=== PATIENT | male | born 1990 | race Caucasian/White ===

== ENCOUNTER 2018-12-13 11:35 | Emergency (ER) | payer MEDICAID ==
[2018-12-13 11:42] VITALS: O2SAT 99
[2018-12-13 12:50] LABS: BASO # 0.1 K/uL (0.0-0.2); BASO % 0.7 % (0.0-2.0); EOS # 0.2 K/uL (0.0-0.7); EOS % 2.6 % (0.0-4.0); HEMOGLOBIN 13.5 g/dL (12.0-18.0); LYMPH # 2.3 K/uL (1.0-4.3); LYMPH % 31.8 % (20.0-40.0); MEAN CELL VOLUME 89.9 fL (80.0-94.0); MEAN CORPUSCULAR HEMOGLOBIN 30.9 pg (27.0-31.0); MEAN CORPUSCULAR HGB CONC 34.4 g/dL (33.0-37.0); MEAN PLATELET VOLUME 7.2 fL (7.2-11.7); MONO # 0.6 K/uL (0.0-0.8); MONO % 8.2 % (0.0-10.0); NEUT # 4.1 K/uL (1.8-7.0); NEUT % 56.7 % (50.0-75.0); RBC 4.38 Mil/uL (4.40-5.90); RED CELL DISTRIBUTION WIDTH 14.1 % (11.5-14.5); WHITE BLOOD COUNT 7.3 K/uL (4.8-10.8)
[2018-12-13 13:04] LABS: ALB/GLOB RATIO 1.9 (1.0-2.1); ALBUMIN 4.1 g/dL (3.5-5.0); ALT/SGPT 262 U/L (21-72); AST/SGOT 135 U/L (17-59); BLOOD UREA NITROGEN 22 mg/dL (9-20); CALCIUM 9.3 mg/dl (8.6-10.4); GFR NON-AFRICAN AMERICAN > 60; LIPASE 62 U/L (23-300)
[2018-12-13 13:17] LABS: B-TYPE NATRIURETIC PEPTIDE 270 pg/mL (0-450)
--- NOTE | 2018-12-13 13:58 | C.PDOC ---
History Of Present Illness 28 year old male with no medical problems presents to the emergency department requesting medical clearance. Patient states that he is trying to be admitted to the [facility] and they require medical clearance. Patient states he feels like he is "retaining water in his body", citing swollen feet and diffuse pain throughout his body. Patient denies history of breathing problems but reports some difficulty breathing recently due to "tension with sister and mother". Patient denies fever. Patient reports a family history of diabetes and hypertension. Time Seen by Provider: 12/13/18 12:22 Chief Complaint (Nursing): Lower Extremity Problem/Injury History Per: Patient History/Exam Limitations: no limitations Onset/Duration Of Symptoms: Days Current Symptoms Are (Timing): Still Present Past Medical History Reviewed: Historical Data, Nursing Documentation, Vital Signs Vital Signs: Last Vital Signs Temp 99.3 F 12/13/18 11:39 Pulse 77 12/13/18 11:39 Resp 20 12/13/18 11:39 BP 135/78 12/13/18 11:39 Pulse Ox 99 12/13/18 11:39 Primary Care Provider: FAMILY PROVIDER,NO - Medical History PMH: No Chronic Diseases Surgical History: No Surg Hx Family History: States: No Known Family Hx - Social History Hx Alcohol Use: Yes Hx Substance Use: Yes (Used to) - Immunization History Hx Tetanus Toxoid Vaccination: No Hx Influenza Vaccination: No Hx Pneumococcal Vaccination: No Review Of Systems Except As Marked, All Systems Reviewed And Found Negative. Constitutional: Negative for: Fever, Chills Respiratory: Negative for: Cough, Shortness of Breath Gastrointestinal: Positive for: Abdominal Pain. Negative for: Nausea, Vomiting, Diarrhea Musculoskeletal: Positive for: Arm Pain, Leg Pain, Foot Pain Neurological: Negative for: Weakness, Numbness Physical Exam - Physical Exam Appears: Non-toxic, No Acute Distress Skin: Normal Color, Warm, Dry Head: Atraumatic, Normacephalic Eye(s): bilateral: Normal Inspection, PERRL, EOMI Nose: Normal Oral Mucosa: Moist Neck: Normal, Supple Chest: Symmetrical, No Tenderness Cardiovascular: Rhythm Regular, No Murmur Respiratory: Normal Breath Sounds, No Rales, No Rhonchi, No Wheezing Gastrointestinal/Abdominal: Soft, No Tenderness, No Guarding, No Rebound Extremity: Normal ROM Neurological/Psych: Oriented x3, Normal Speech, Normal Cognition ED Course And Treatment - Laboratory Results Result Diagrams: 12/13/18 12:44 12/13/18 12:44 Lab Results: NT-Pro-B Natriuret Pep 270 pg/mL (0-450) 12/13/18 12:44 Total Bilirubin 0.3 mg/dL (0.2-1.3) 12/13/18 12:44 AST 135 U/L (17-59) H 12/13/18 12:44 ALT 262 U/L (21-72) H 12/13/18 12:44 Alkaline Phosphatase 64 U/L (38-126) 12/13/18 12:44 Total Protein 6.3 g/dL (6.3-8.3) 12/13/18 12:44 Albumin 4.1 g/dL (3.5-5.0) 12/13/18 12:44 Globulin 2.2 gm/dL (2.2-3.9) 12/13/18 12:44 Albumin/Globulin Ratio 1.9 (1.0-2.1) 12/13/18 12:44 Lipase 62 U/L (23-300) 12/13/18 12:44 O2 Sat by Pulse Oximetry: 99 (RA) Pulse Ox Interpretation: Normal - Other Rad CXR X-Ray: Viewed By Me, Read By Radiologist Interpretation: IMPRESSION: Mild left basilar atelectasis. Medical Decision Making Medical Decision Making: Plan: EKG Chemistry CBC CXR On re-exam, the patient reports improvement of symptoms. Lungs are CTA, heart is RRR, abdomen is soft, non-tender and tolerating PO well. Follow up with the medical doctor within 1-2 days. Return if worsened. Disposition - Disposition Disposition: HOME/ ROUTINE Disposition Time: 14:41 Condition: GOOD Additional Instructions: PATIENT IS MEDICALLY CLEARED FOR SALVATION. [employer]. BLOOD WORK IS NORMAL Prescriptions: Compression Socks, Medium [Futuro Restoring] 1 each MC DAILY #2 each Instructions: Dependent Edema (DC) Forms: [facility] (Z[place]ian) - Clinical Impression Clinical Impression: Leg edema - PA / ENERGY ENGINEER / Resident Statement MD/DO has reviewed & agrees with the documentation as recorded. - Scribe Statement The provider has reviewed the documentation as recorded by the Scribe (Jose Traylor) All medical record entries made by the Scribe were at my direction and personally dictated by me. I have reviewed the chart and agree that the record accurately reflects my personal performance of the history, physical exam, medical decision making, and the department course for this patient. I have also personally directed, reviewed, and agree with the discharge instructions and disposition.
--- NOTE | 2018-12-13 14:22 | RAD ---
HISTORY: leg swelling COMPARISON: None available. TECHNIQUE: Chest PA and lateral, 2 views FINDINGS: LUNGS: Mild left basilar atelectasis. Please note that chest x-ray has limited sensitivity for the detection of pulmonary masses. PLEURA: No significant pleural effusion identified. No definite pneumothorax . CARDIOVASCULAR: The cardiomediastinal silhouette appears within normal limits of size. No atherosclerotic calcification present. OSSEOUS STRUCTURES: No acute osseous abnormality identified. VISUALIZED UPPER ABDOMEN: Mild elevation of the right hemidiaphragm. OTHER FINDINGS: None. IMPRESSION: Mild left basilar atelectasis.
[2018-12-13 14:53] VITALS: BP 129/72; PULSE 75; RESP 16; TEMP 99.1
--- NOTE | 2018-12-15 | CARD ---
APPROVED REPORT Date of service: 12/13/2018 EKG Measurement Heart [id number] <Conclusion> Normal sinus rhythm Incomplete right bundle branch block Borderline ECG
== END 2018-12-13 14:52 | disposition home or self-care (01) ==
LOC: C.ER 11:35
DX: R60.0 Localized edema (principal)